=== PATIENT | female | born 1965 | race Caucasian/White ===

== ENCOUNTER 2021-05-06 01:33 | Inpatient (IN) | payer BC, SELFPAY ==
[2021-05-06] VITALS (13 sets, daily range): BP systolic 106–160; BP diastolic 44–77; PULSE 68–86; RESP 16–24; TEMP 36.5–37.4; O2SAT 92–97; BMI 68.1; BMI 60.5
[2021-05-06 02:01] LABS: Basophils # 0.1 K/mm3 (0-0.2); Basophils % 0.6 % (0.1-2.0); Eosinophils # 0.3 K/mm3 (0.0-0.4); Eosinophils % 1.7 % (0.1-12.0); Hematocrit 41.8 % (37.0-47.0); Hemoglobin 13.3 g/dL (12.2-16.2); Lymphocytes % 12.4 % (10-50); Mean Corpuscular HGB Conc 31.7 g/dL (31.8-35.4); Mean Corpuscular Hemoglobin 30.8 pg (27.0-31.2); Monocytes # 0.5 K/mm3 (0.1-1.0); Monocytes % 3.1 % (1.7-9.3); Neutrophils # 12.9 K/mm3 (1.8-7.8); Neutrophils % 82.2 % (37.0-80.0); Platelet Count 431 K/mm3 (142-424); Red Blood Count 4.31 M/mm3 (4.20-5.40); Red Cell Distribution Width 15.7 % (11.5-17.5); White Blood Count 15.7 K/mm3 (4.8-10.8)
[2021-05-06 02:07] LABS: Alanine Aminotransferase 50 U/L (12-78); Albumin Level 4.2 g/dl (3.5-5.0); Alkaline Phosphatase 95 U/L (38-126); Anion Gap 14.9 mEq/L (5-15); Aspartate Amino Transferase 45 U/L (14-36); Bilirubin,Total 0.9 mg/dl (0.2-1.3); Blood Urea Nitrogen 17 mg/dl (7-17); Calcium 9.7 mg/dl (8.4-10.2); Carbon Dioxide 33 mmol/L (22.0-30.0); Chloride 93 mmol/L (98-107); Creatinine Clearance Estimated 60 mL/min (50-200); Estimated Glomerular Filt Rate 65 ml/min (>60); GFR (African American) 78 ML/MIN (>60); Globulin 4.1 g/dL (1.3-3.2); Glucose 149 mg/dl (74-100); Potassium 3.9 mmoL/L (3.5-5.1); Sodium 137 mmol/L (136-145); Total Protein,Serum 8.3 g/dl (6.3-8.2)
[2021-05-06 02:11] LABS: Lactic Acid 2.8 mmol/L (0.7-2.1)
[2021-05-06 02:12] LABS: C-Reactive Protein 61.8 mg/L (0-4)
[2021-05-06 02:13] LABS: MANUAL DIFFERENTIAL MANUAL DIFFERENTIAL (MANUAL DIFF)
[2021-05-06 02:14] LABS: Eosinophils % 3 % (0-3); Lymphocytes % 11 % (10-50); Monocytes % 2 % (2-9); Neutrophils % 80 % (42-76); Platelet Estimate Normal; Total Cells Counted 100
[2021-05-06 02:15] LABS: Hypochromasia 1+; Macrocytosis 1+
[2021-05-06 02:26] LABS: Procalcitonin 0.102 ng/mL (0.0-2.0)
[2021-05-06 02:27] LABS: Erythrocyte Sedimentation Rate 81 mm/hr (0-30)
[2021-05-06 02:59] LABS: Coronavirus 19, PCR Not Detected (NotDetected); Influenza A, PCR Not Detected (NotDetected); Influenza B, PCR Not Detected (NotDetected)
--- NOTE | 2021-05-06 03:30 | HMH.EDSKAF ---
ED Disposition Clinical Impression: IDDM (insulin dependent diabetes mellitus), Hypothyroidism (acquired), Severe sepsis with acute organ dysfunction, Pickwickian syndrome Lower extremity cellulitis Qualifiers: Laterality: left Qualified Code(s): L03.116 - Cellulitis of left lower limb Obesity Qualifiers: Obesity type: due to excess calories Obesity classification: adult class 3 (BMI >= 40) Serious obesity comorbidity presence: with serious comorbidity Body mass index: BMI 60.0-69.9 Qualified Code(s): E66.01 - Morbid (severe) obesity due to excess calories; Z68.44 - Body mass index [BMI] 60.0-69.9, adult Disposition: Admitted as Observation Condition on Discharge: Good Referrals: Davy Forman MD [Primary Care Provider] - - Critical Care Critical Care Time: No Attestation: On 05/06/21, the high probability of a clinically significant, sudden or life threatening deterioration of the following system(s) required my full and direct attention, intervention and personal management. The time I documented below is in addition to time spent performing reported procedures but includes the following listed in this critical care notation. Medical Decision Making - Medical Records Medical records reviewed: Yes: I reviewed the patient's medical records. - Yemi Inquiry Pt receiving controlled substance: No Vital Signs: 05/06/21 01:34 05/06/21 02:30 Temperature 98.0 F Temperature Source Oral Pulse Rate 73 Pulse Rate [Right] 86 Respiratory Rate 22 Blood Pressure 115/57 L Blood Pressure [Right Arm] 160/77 H Blood Pressure Mean 73 Blood Pressure Mean [Right Arm] 104 02 Sat by Pulse Oximetry 97 94 L - Lab Data Lab results reviewed: Yes: I reviewed the patient's lab results. Lab Results 05/06/21 01:40: WBC 15.7 H, RBC 4.31, Hgb 13.3, Hct 41.8, MCV 97.0, MCH 30.8, MCHC 31.7 L, RDW 15.7, Plt Count 431 H, MPV 8.0, Neut % (Auto) 82.2 H, Lymph % (Auto) 12.4, Park % (Auto) 3.1, Eos % (Auto) 1.7, Baso % (Auto) 0.6, Neut # (Auto) 12.9 H, Lymph # (Auto) 2.0, Park # (Auto) 0.5, Eos # (Auto) 0.3, Baso # (Auto) 0.1, Total Counted 100, Neutrophils % (Manual) 80 H, Band Neutrophils % 4.0, Lymphocytes % (Manual) 11, Monocytes % (Manual) 2, Eosinophils % (Manual) 3, Platelet Estimate Normal, Hypochromasia 1+, Macrocytosis 1+, ESR 81 H 05/06/21 01:40: Sodium 137, Potassium 3.9, Chloride 93 L, Carbon Dioxide 33 H, Anion Gap 14.9, BUN 17, Creatinine 0.90, Estimated Creat Clear 60, Estimated GFR 65, Est GFR ( Amer) 78, Glucose 149 H, Calcium 9.7, Total Bilirubin 0.9, AST 45 H, ALT 50, Alkaline Phosphatase 95, C-Reactive Protein 61.8 H, Total Protein 8.3 H, Albumin 4.2, Globulin 4.1 H, Albumin/Globulin Ratio 1.0 L, Procalcitonin 0.102 05/06/21 01:40: Lactate 2.8 H 05/06/21 02:44: SARS-CoV-2 (PCR) Not detected, Influenza A Untype (PCR) Not detected, Influenza Type B (PCR) Not detected Result diagrams: 05/06/21 01:40 05/06/21 01:40 Orders (Tests/Meds): ED MEDICATIONS Generic Name Dose Route Start Last Admin Trade Name Freq PRN Reason Stop Dose Admin Sodium Chloride 1,000 mls @ 999 mls/hr 05/06/21 02:00 05/06/21 02:13 Sod Chlor 0.9% 1000ml Bag IV 05/06/21 03:00 999 mls/hr .Q1H1M CELESTINO Administration Discontinued Medications Generic Name Dose Route Start Last Admin Trade Name Freq PRN Reason Stop Dose Admin Ketorolac Tromethamine 30 mg 05/06/21 01:58 05/06/21 02:13 Ketorolac 30mg/Ml Vial IV 05/06/21 01:59 30 mg ONCE ONE Administration ORDERS Category Date Time Status Blood Culture Stat Micro 05/06/21 01:40 Received - Radiology Data #1 Image(s): Foot/Toes Image Reviewed: Yes I have reviewed radiologist's interpretation Preliminary Findings: Abnormal (sts) - Physician Consults Physician Consulted: shaista Reason -: Admission Medical Decision Narrative: has prob infection lt lower leg/foot in diabetic with sepsis criteria Skin/Abscess/FB HPI - Genera
--- NOTE | 2021-05-06 03:54 | XR_ITS ---
PROCEDURE INFORMATION: Exam: XR Left Foot Exam date and time: 05/06/2021 3:54 AM Age: 55 years old Clinical indication: Pain; Foot; Left; Additional info: Pain lt foot, redness and swelling TECHNIQUE: Imaging protocol: XR Left foot. Views: 3 or more views. COMPARISON: No relevant prior studies available. FINDINGS: Bones/joints: No acute fracture, dislocation or osseous destructive process. Mild intertarsal and tarsometatarsal degenerative changes. Soft tissues: Small enthesophyte at the attachment of the plantar fascia on the calcaneus. Soft tissue swelling without radiopaque foreign body. Vasculature: Atherosclerotic calcifications. IMPRESSION: 1. No acute osseous findings or radiopaque foreign body. 2. Soft tissue swelling. 3. Mild degenerative changes in the foot.
--- NOTE | 2021-05-06 04:52 | PC.NURSE ---
Dr Mcintyre speaking with Dr Joseph for admission
--- NOTE | 2021-05-06 05:02 | PC.NURSE ---
Vancomycin dose per Night watch
[2021-05-06 05:05] LABS: Reflex Lactic Add Lactic Reflex
[2021-05-06 05:25] LABS: Lactic Acid Follow Up (RFLX 1) 1.1 mmol/L (0.7-2.1)
--- NOTE | 2021-05-06 05:35 | PC.NURSE ---
pt arrived to floor via stretcher
--- NOTE | 2021-05-06 06:51 | PC.WOUNDNOTE ---
Open areas to Bilateral posterior thighs and buttocks
[2021-05-06 07:50] LABS: POC Glucose,Bedside 116 (70-110)
--- NOTE | 2021-05-06 08:09 | P.CONPHA_ITS ---
[facility] VTE Monitoring - Patient Demographics Admission date: 05/06/21 Report Date: 05/06/21 Time: 08:09 Allergies/Adverse Reactions: Patient Allergies amoxicillin [From Augmentin] Allergy (Verified 05/06/21 01:55) clavulanic acid [From Augmentin] Allergy (Verified 05/06/21 01:55) amlodipine [From Norvasc] Adverse Reaction (Verified 05/06/21 01:55) Height: 1.63 m Weight: 160.685 kg Patient Problems: Current Active Problems Lower extremity cellulitis (Acute) Obesity (Acute) IDDM (insulin dependent diabetes mellitus) (Acute) Hypothyroidism (acquired) (Acute) Severe sepsis with acute organ dysfunction (Acute) Pickwickian syndrome (Acute) - VTE Risk Labs: VTE Related Lab Results Hgb 13.3 g/dL (12.2-16.2) 05/06/21 01:40 Hct 41.8 % (37.0-47.0) 05/06/21 01:40 Plt Count 431 K/mm3 (142-424) H 05/06/21 01:40 BUN 17 mg/dl (7-17) 05/06/21 01:40 Creatinine 0.90 mg/dl (0.52-1.04) 05/06/21 01:40 Estimated Creat Clear 60 mL/min (50-200) 05/06/21 01:40 Was VTE Risk Assessment Performed: Yes VTE Risk Level: Moderate Risk Clinical Trial Participant: No - Prophylaxis VTE Prophylaxis Ordered?: Yes Types of VTE Prophylaxis: TEDS Knee High
--- NOTE | 2021-05-06 08:11 | HMH.PHACONS ---
- Pharmacy Consult Date: 05/06/21 Time: 08:11 Referring provider: DR. MISHRA Reason for Consult:: VANCOMYCIN DOSING Allergies and ADEs:: Allergies Allergy/AdvReac Type Severity Reaction Status Date / Time amoxicillin [From Augmentin] Allergy Verified 05/06/21 01:55 clavulanic acid Allergy Verified 05/06/21 01:55 [From Augmentin] amlodipine [From Norvasc] AdvReac Verified 05/06/21 01:55 Home Medications:: Home Medications Medication Instructions Recorded Confirmed Type Aspirin [Aspirin 81mg EC Tab] 81 mg PO DAILY 05/06/21 05/06/21 History Folic Acid [Folic Acid 1mg tablet] 1 mg PO DAILY 05/06/21 05/06/21 History Gabapentin [Gabapentin 300mg/6ml 300 mg PO DIRECTED 05/06/21 05/06/21 History Oral Soln] Hydrocod/Acet 5/325 mg [[place] 1 tab PO Q4-6H 05/06/21 05/06/21 History 5/325mg tablet] Insulin Aspart [Novolog Flexpen] 15 unit SQ TID 05/06/21 05/06/21 History Insulin Glargine,Hum.rec.anlog 50 units SQ BID 05/06/21 05/06/21 History [Lantus Solostar 100 Units/mL 3mL flexpen] Levothyroxine Sodium [Synthroid 300 mcg PO DAILY 05/06/21 05/06/21 History 100mcg (0.1mg) tablet] Metformin HCl [Metformin 1000mg 100 mg PO BID 05/06/21 05/06/21 History Tablets] Omeprazole [Omeprazole 40mg 40 mg PO DAILY 05/06/21 05/06/21 History Capsule] Oxybutynin Chloride [Oxybutynin 5 mg PO DAILY 05/06/21 05/06/21 History Chloride ER] Rosuvastatin Calcium 5 mg PO DAILY 05/06/21 05/06/21 History metHOTREXate sodium [metHOTREXate 8 tab PO WEEKLY 05/06/21 05/06/21 History 2.5mg Tablet] predniSONE [Prednisone 5mg 10 mg PO DAILY 05/06/21 05/06/21 History Tab] Height: 1.63 m Weight: 160.685 kg Laboratory Results:: Laboratory Results - last 24 hr 05/06/21 01:40: WBC 15.7 H, RBC 4.31, Hgb 13.3, Hct 41.8, MCV 97.0, MCH 30.8, MCHC 31.7 L, RDW 15.7, Plt Count 431 H, MPV 8.0, Neut % (Auto) 82.2 H, Lymph % (Auto) 12.4, Harding % (Auto) 3.1, Eos % (Auto) 1.7, Baso % (Auto) 0.6, Neut # (Auto) 12.9 H, Lymph # (Auto) 2.0, Harding # (Auto) 0.5, Eos # (Auto) 0.3, Baso # (Auto) 0.1, Total Counted 100, Neutrophils % (Manual) 80 H, Band Neutrophils % 4.0, Lymphocytes % (Manual) 11, Monocytes % (Manual) 2, Eosinophils % (Manual) 3, Platelet Estimate Normal, Hypochromasia 1+, Macrocytosis 1+, ESR 81 H 05/06/21 01:40: Sodium 137, Potassium 3.9, Chloride 93 L, Carbon Dioxide 33 H, Anion Gap 14.9, BUN 17, Creatinine 0.90, Estimated Creat Clear 60, Estimated GFR 65, Est GFR ( Amer) 78, Glucose 149 H, Calcium 9.7, Total Bilirubin 0.9, AST 45 H, ALT 50, Alkaline Phosphatase 95, C-Reactive Protein 61.8 H, Total Protein 8.3 H, Albumin 4.2, Globulin 4.1 H, Albumin/Globulin Ratio 1.0 L, Procalcitonin 0.102 05/06/21 01:40: Lactate 2.8 H 05/06/21 02:44: SARS-CoV-2 (PCR) Not detected, Influenza A Untype (PCR) Not detected, Influenza Type B (PCR) Not detected 05/06/21 05:10: Lactate 1.1 05/06/21 06:06: POC Glucose 116 H Medical History: Reports:: Diabetes Mellitus Type 2, MRSA Denies:: Cancer Assessment and Plan - Assessment and plan all Dx Assessment and Plan for all problems:: Age: 55 yo Serum creatinine: 0.9 mg/dL Height: 64.2 Inches Weight (kg): 160 Assessment: IBW (kg): 55.16 Dosing wt(kg): 160 Estimated Creatinine clearance (ml/min): 60.8 CRCL method: Cockcroft and Gault using ibw(default). Drug selected: Vancomycin Loading dose (mg): 0 Vd (liters): 128.0 (factor used: 0.8 L/kg) Nolan (hr-1): 0.055 Half life (hrs): 12.60 Recommended dose: 2000 mg Interval: 12 hrs Infusion time (hrs): 2.0 Predicted peak (mcg/mL): 30.6 Predicted trough (mcg/mL): 17.65 Total body weight is being used for vancomycin dosing. Recommendations: Give Vancomycin 2000 mg q 12 hrs with an expected Cpeak of 30.6 mcg/ml and an expected Ctrough of 17.65 mcg/ml ----Vanco only - cheryl
--- NOTE | 2021-05-06 09:38 | HMH.HP ---
*Admission Date: 05/06/21 *Chief complaint: cellulitis of leg *History of present illness: Mini is a 55-year-old white female with a history of insulin-dependent type 2 diabetes mellitus, hypothyroidism, dyslipidemia, morbid obesity, obstructive sleep apnea, temporal arteritis, polymyalgia rheumatica, and SHANKS. She has had multiple previous hospitalization for cellulitis and diabetic wounds of both lower extremities. Most of these admissions have been at [facility] in [facility]. Most recently she was hospitalized at [facility] for 5 days last week and was discharged home on 05/03/2021 with a prescription for clindamycin. She became concerned on 05/05/2021 when the redness in her left foot and leg seem to be getting worse and she had more pain in the wound on her left foot. She went back to the emergency room at [facility] and states she was briefly admitted to the floor but when the hospitalist made rounds, he immediately discharged her home with a diagnosis of dermatitis of her leg. 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 She was evaluated in the ER and has now been admitted with a diagnosis of cellulitis and started back on vancomycin which she states she was given last week during her [place] admission. She has been following as an outpatient with [place] wound care for chronic wounds on both posterior thighs. Treatment has been complicated by her diabetes, body habitus, noncompliance due to the fact she is unable to change her own dressings at home and does not qualify for home health because she works every day. [facility] History Medical History: Reports:: Diabetes Mellitus Type 2, MRSA Denies:: Cancer, Deep Vein Thrombosis *Have you ever received a pneumonia vaccine?: Yes *Have you received a flu vaccine this season?: No Other Medical History: Reports: Arthritis, Thyroid Disease, Other (Chronic venous insufficiency, PMR, SHANKS, chronic steroid use) Other Surgeries: Yes: Other (Left salpingo-oophorectomy, temporal artery biopsy, pilomatrixoma (R arm)) Amputation: No - *Social History Last grade of school completed: High school graduate Smoking Status: Never smoker Alcohol Intake: never Substance Use Type: denies use *Occupational Status:: employed, disabled *Travel in the last 8 weeks: None Family Hx:: Asthma, Cancer, Diabetes, Hypertension, Stroke, Thyroid Disorder Review of Systems - Constitutional Reports fatigue, Reports lack of energy - Eyes Denies change in vision, Denies itchy eyes - ENT Reports dizziness, Denies hearing loss, Denies nasal congestion, Denies sinus pressure - *Cardiovascular Reports leg pain with activity, Reports shortness of breath with activity, Denies chest pain, Denies irregular heart rhythm, Denies rapid, pounding, or irregular heartbeat - *Respiratory Reports snoring, Denies chest congestion, Denies cough - *Gastrointestinal Denies abdominal pain, Denies change in bowel habits, Denies nausea - *Genitourinary Denies abnormal vaginal bleeding, Denies difficulty urinating, Denies painful urination - *Musculoskeletal Reports joint pain, Reports muscle weakness - Integumentary/Breasts Reports lesions, Denies hair loss, Denies change in skin color, Denies unusual bruising - *Neurologic Denies localized weakness, Denies headache(s), Denies seizure-like activity - Psychiatric Denies abnormal sleep pattern, Denies memory loss - Endocrine Reports heat intolerance, Denies excessive sweating - Hematologic/Lymphatic Denies easy bleeding, Denies easy bruising - Allergic/Immunologic Denies itchy eyes Meds Home Medications Medication Instructions Recorded Confirmed Type Aspirin [Aspirin 81mg EC Tab] 81 mg PO DAILY 05/06/21 05/06/21 History Folic Acid [Folic Acid 1mg tablet] 1 mg PO DAILY 05/06/21 05/06/21 History Gabap
[2021-05-06 12:04] LABS: POC Glucose,Bedside 101 (70-110)
--- NOTE | 2021-05-06 14:47 | PC.NURSE ---
SHE IS AOX4, ABLE TO MAKE NEEDS KNOWN TO STAFF, SHE HAS RESTED IN BED FOR MOST OF SHIFT, SHE STATED THAT SHE DID NOT SLEEP WELL LAST NIGHT, SHE HAS NOT C/O PAIN THIS SHIFT, DENIES N/V/D, ABD IS SOFT ROUND AND NON-TENDER WITH BOWEL SOUNDS ACTIVE X4, PT HAS TOLERATED DIET WELL. SHE HAS NOT REQUIRED O2 SUPPORT THIS SHIFT. LUNGS ARE DIMINISHED TO AUSCULTATION, RESPIRATIONS ARE NORMAL AND NON-LABORED. HER FSBS HAVE BEEN WNL THIS SHIFT AND SHE HAS NOT REQUIRED SSI. HER 15 UNITS OF NOVOLOG WAS ALSO HELD R/T HER BS LEVEL OF 101 AT 1100 THIS AM. VSS T/O SHIFT, NO NEEDS VOICED.
[2021-05-06 19:13] LABS: POC Glucose,Bedside 116 (70-110)
[2021-05-06 21:27] LABS: POC Glucose,Bedside 124 (70-110)
[2021-05-07] VITALS (16 sets, daily range): BP systolic 101–139; BP diastolic 50–69; PULSE 57–83; RESP 16–24; TEMP 36.4–37.2; O2SAT 93–98; BMI 60.5
--- NOTE | 2021-05-07 02:42 | PC.NURSE ---
Patient is alert and oriented x4. She is a standby assist when ambulating; she ambulates well with the walker. At the beginning of the shift patient had complaints of diarrhea. She has had 3 this shift and a stool sample was collected and sent to the lab. Patient has had complaints of pain and was treated per OCT. VSS, call light within reach, will continue to monitor.
[2021-05-07 05:55] LABS: Adenovirus F 40/41, stool Not Detected (NotDetected); Astrovirus Not Detected (NotDetected); Campylobacter Not Detected (NotDetected); Cryptosporidium Not Detected (NotDetected); Cyclospora Cayetanesis Not Detected (NotDetected); Entamoeba histolytica Not Detected (NotDetected); Enteroaggregative E coli Not Detected (NotDetected); Enteropathogenic E coli Not Detected (NotDetected); Enterotoxigenic E coli Not Detected (NotDetected); Giardia lamblia Not Detected (NotDetected); Norovirus Not Detected (NotDetected); Plesimonas Shigalloides, PCR Not Detected (NotDetected); Rotavirus A Not Detected (NotDetected); Salmonella, PCR Not Detected (NotDetected); Sapovirus Not Detected (NotDetected); Shiga-like toxin E coli Not Detected (NotDetected); Shigella Enterovasive E coli Not Detected (NotDetected); Vibrio Cholerae Not Detected (NotDetected); Vibrio, PCR Not Detected (NotDetected); Yersinia Entercolitica, PCR Not Detected (NotDetected)
[2021-05-07 06:00] LABS: Basophils # 0.1 K/mm3 (0-0.2); Basophils % 1.4 % (0.1-2.0); Eosinophils # 0.9 K/mm3 (0.0-0.4); Hematocrit 37.9 % (37.0-47.0); Hemoglobin 11.8 g/dL (12.2-16.2); Lymphocytes % 9.5 % (10-50); Mean Corpuscular HGB Conc 31.2 g/dL (31.8-35.4); Mean Corpuscular Hemoglobin 30.9 pg (27.0-31.2); Mean Corpuscular Volume 99.2 fl (81-99); Mean Platelet Volume 7.9 fl (7.4-10.4); Monocytes # 0.7 K/mm3 (0.1-1.0); Monocytes % 7.2 % (1.7-9.3); Neutrophils # 7.3 K/mm3 (1.8-7.8); Neutrophils % 72.9 % (37.0-80.0); Platelet Count 310 K/mm3 (142-424); Red Blood Count 3.82 M/mm3 (4.20-5.40); Red Cell Distribution Width 15.8 % (11.5-17.5)
[2021-05-07 06:02] LABS: POC Glucose,Bedside 102 (70-110)
[2021-05-07 06:10] LABS: Anion Gap 8.9 mEq/L (5-15); Blood Urea Nitrogen 14 mg/dl (7-17); Calcium 8.3 mg/dl (8.4-10.2); Carbon Dioxide 32 mmol/L (22.0-30.0); Chloride 99 mmol/L (98-107); Creatinine Clearance Estimated 60 mL/min (50-200); Estimated Glomerular Filt Rate 65 ml/min (>60); GFR (African American) 78 ML/MIN (>60); Glucose 112 mg/dl (74-100); Potassium 3.9 mmoL/L (3.5-5.1); Sodium 136 mmol/L (136-145)
[2021-05-07 06:16] LABS: C-Reactive Protein 66.5 mg/L (0-4)
[2021-05-07 06:25] LABS: Erythrocyte Sedimentation Rate 87 mm/hr (0-30)
--- NOTE | 2021-05-07 08:00 | US_ITS ---
APPROVED REPORT Exam Type: Ankle to Brachial Index Dance Historian: Rachele Gary RCS, RVS Indications Edema Extreme morbid obesity, DM, Dermatitis, Cellulitis Risk Factors Obesity Diabetes Pressures/Indices Right Indices Left Indices Brachial 113.00 mmHg Brachial 105.00 mmHg Calf 220.00 mmHg 1.95 Calf 178.00 mmHg 1.58 Ankle(PT) 149.00 mmHg 1.32 Ankle(PT) 173.00 mmHg 1.53 Ankle(DP) 140.00 mmHg 1.24 Ankle(DP) 109.00 mmHg 0.96 Digit 121.00 mmHg 1.07 Digit 95.00 mmHg 0.84 Findings No thigh pressures available bilaterally due to leg circumference exceeds cuffs ability. Waveforms within normal limits. RT BRANDEE=1.32 LT BRANDEE=1.53 RT TBI=1.24 LT TBI=0.84 Conclusion No thigh pressures available bilaterally due to leg circumference exceeds cuffs ability. Waveforms within normal limits. RT BRANDEE=1.32 LT BRANDEE=1.53 RT TBI=1.24 LT TBI=0.84 Elevated ABIs on both sides suggesting hardening of the vessels Electronically signed by : Pravin Perry MD 05/07/2021 16:30:38
--- NOTE | 2021-05-07 08:00 | MR_ITS ---
PROCEDURE INFORMATION: Exam: MR Left Lower Extremity Other Than Joint Without and With Contrast; Foot Exam date and time: 05/07/2021 8:00 AM Age: 55 years old Clinical indication: Pain; Foot; Left; Additional info: Evaluate diabetic ulcer TECHNIQUE: Imaging protocol: MR of the Left lower extremity without and with intravenous contrast. Exam focused on the foot. Contrast material: PROHANCE; Contrast volume: 30 ml; Contrast route: IV; COMPARISON: CR XR FOOT LT MIN 3V 05/06/2021 4:01 AM FINDINGS: Limitations: The large efowq-un-nuik needed to image the entire foot and ankle results in proportionally lower anatomic detail. Motion artifact is also present. Bones and cartilage: There is no evidence of osteomyelitis. No fracture or dislocation is present. Severe osteoarthritis involves the second tarsometatarsal joint and navicular-medial cuneiform joint. There is a healed fracture of the proximal fifth metatarsal. A small plantar calcaneal enthesophyte is present. Joint spaces: Mild effusions involve the navicular-medial cuneiform joint and decompress posteriorly from the posterior facet of the subtalar joint. LIGAMENTS: Lisfranc ligament: Unremarkable. No evidence of tear. TENDONS: Flexor tendons of foot: Unremarkable. No evidence of tear. Tibialis posterior tendon: Unremarkable as visualized. Peroneal tendons: Mild tenosynovitis involves the peroneal tendon sheath. Extensor tendons of foot: Unremarkable. No evidence of tear. Tibialis anterior tendon: Unremarkable as visualized. Achilles tendon: Mild thickening involves the distal Achilles tendon, consistent with mild tendinopathy. Tarsal canal (Sinus tarsi): Unremarkable. Tarsal tunnel: Unremarkable. Soft tissues: There is a moderate amount of edema in the subcutaneous fat suggesting cellulitis. There is a presumed soft tissue ulcer along the plantar aspect of the fifth metatarsophalangeal joint although assessment is somewhat limited by artifactually decreased MR signal in this region. There is no focal fluid collection or soft tissue gas to suggest an abscess. Plantar fascia: The proximal plantar fascia is mildly thickened and has mildly increased T2 signal consistent with mild plantar fasciitis (fasciopathy). IMPRESSION: 1. No abscess or osteomyelitis. 2. Moderate subcutaneous edema consistent with cellulitis. 3. Mild Achilles tendinopathy. 4. Mild plantar fasciitis (fasciopathy). 5. Mild tenosynovitis of the peroneal tendons.
--- NOTE | 2021-05-07 08:11 | HMH.ORTHOCON ---
*Admission Date: 05/06/21 <Loan Briones - 05/07/21 08:22> *Reason for consult:: cellultis of L lower leg, L sub 5th DM ulcer <Loan Briones - 05/07/21 08:22> *History of present illness: Mini is a 55-year-old white female with a history of insulin-dependent type 2 diabetes mellitus, hypothyroidism, dyslipidemia, morbid obesity, obstructive sleep apnea, temporal arteritis, polymyalgia rheumatica, and SHNAKS. She has had multiple previous hospitalization for cellulitis and diabetic wounds of both lower extremities. Most of these admissions have been at [facility] in [facility]. Most recently she was hospitalized at [facility] for 5 days last week and was discharged home on 05/03/2021 with a prescription for clindamycin. She became concerned on 05/05/2021 when the redness in her left foot and leg seem to be getting worse and she had more pain in the wound on her left foot. She went back to the emergency room at [facility] and states she was briefly admitted to the floor but when the hospitalist made rounds, he immediately discharged her home with a diagnosis of dermatitis of her leg. 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 She was evaluated in the ER and has now been admitted with a diagnosis of cellulitis and started back on vancomycin which she states she was given last week during her [place] admission. She has been following as an outpatient with [place] wound care for chronic wounds on both posterior thighs. Treatment has been complicated by her diabetes, body habitus, noncompliance due to the fact she is unable to change her own dressings at home and does not qualify for home health because she works every day. Podiatry consult -patient resting in bed this morning she was getting her ABIs obtained while entering the room this morning. Patient admitted with cellulitis to the left lower extremity but also looks like she has some chronic cellulitis on her bilateral upper thighs. Patient also presents with a left subfifth diabetic ulcer that she said started out as a blood blister and then popped. The site appears to be very superficial but very painful to touch. There was no drainage when compressed but upon compression all the way around the ulcer was excruciating pain for her. The area was lightly cleaned and debrided and dressed with Betadine dressing. The plan is to take the patient later after her MRI has been obtained to surgery for I&D and flush the area out with antibiotics later today. Patient is to remain n.p.o. until after surgery. <AnaliLoan L 05/07/21 10:11> [facility] History I have reviewed the patient's past medical history: Yes <Loan Briones 05/07/21 12:03> Medical History: Reports:: Diabetes Mellitus Type 2, MRSA Denies:: Cancer, Deep Vein Thrombosis <Loan Briones 05/07/21 08:22> *Have you ever received a pneumonia vaccine?: Yes <Loan Briones 05/07/21 08:22> *Have you received a flu vaccine this season?: No <Loan Briones 05/07/21 08:22> Other Medical History: Reports: Arthritis, Thyroid Disease, Other (Chronic venous insufficiency, PMR, SHANKS, chronic steroid use) <Loan Briones 05/07/21 08:22> Other Surgeries: Yes: Other (Left salpingo-oophorectomy, temporal artery biopsy, pilomatrixoma (R arm)) <Loan Briones 05/07/21 08:22> Amputation: No <Loan Briones 05/07/21 08:22> - *Social History Last grade of school completed: High school graduate <Loan Briones 05/07/21 08:22> Smoking Status: Never smoker <Loan Briones 05/07/21 08:22> Alcohol Intake: never <Loan Briones 05/07/21 08:22> Substance Use Type: denies use <Loan Briones 05/07/21 08:22> *Occupational Status:: employed, disabled <Loan Briones 05/07/21 08:22> *Travel in the last 8 weeks: None <Loan Briones - 05/07/21 0
[2021-05-07 08:16] LABS: Clostridium Difficile A/B, PCR Detected (NotDetected)
--- NOTE | 2021-05-07 08:22 | HMH.ACPN2 ---
<Jillian Killian - Last Filed: 05/07/21 08:32> Internal Medicine - PN: Subj *Date: 05/07/21 *Time: 08:33 Interval history: Patient feels that her left leg is better. She did sleep some during the night. She is currently having her left foot wound being debrided and cleansed at bedside. Wound site is very tender. She had several diarrhea stools during the night with her last being around 12 midnight. Stool panel came back positive for C. difficile. White blood cell count has decreased to 10,000. ESR is elevated at 87. Exam Vital signs and Labs for Last 24 Hours: Temp Pulse Resp BP Pulse Ox 98.3 F 70 24 139/69 94 L 05/07/21 07:51 05/07/21 07:51 05/07/21 07:51 05/07/21 07:51 05/07/21 07:51 Laboratory Results - last 24 hr 05/06/21 11:35: POC Glucose 101 05/06/21 16:35: POC Glucose 116 H 05/06/21 20:54: POC Glucose 124 H 05/07/21 00:00: Stl Aeromonas (PCR) Not detected, Stl C. cayetanensis PCR Not detected, Stool Rotavirus (PCR) Not detected, Stl Adenov F 40/41 PCR Not detected, Stool Astrovirus (PCR) Not detected, Stool Campylobacter PCR Not detected, Stl C.difficile Tox PCR Detected A, Stool Cryptosporidium PCR Not detected, Stl E.coli Shiga Tox PCR Not detected, Stool E coli O157 PCR Not detected, Stl Enterotoxigenic E PCR Not detected, Stool EPEC (PCR) Not detected, Stool EAEC (PCR) Not detected, Stl E. histolytica PCR Not detected, Stool Giardia Lamblia PCR Not detected, Stool Salmonella PCR Not detected, Stool Sapovirus (PCR) Not detected, Stl P. shigelloides PCR Not detected, Stl Shigella/EIEC PCR Not detected, St Y.enterocolitica PCR Not detected, Stool Vibrio (PCR) Not detected, Stl Vibrio cholerae PCR Not detected, Stl Norovirus GI/GII PCR Not detected 05/07/21 05:21: POC Glucose 102 05/07/21 05:35: WBC 10.0 D, RBC 3.82 L, Hgb 11.8 L, Hct 37.9, MCV 99.2 H, MCH 30.9, MCHC 31.2 L, RDW 15.8, Plt Count 310 D, MPV 7.9, Neut % (Auto) 72.9, Lymph % (Auto) 9.5 L, [place] % (Auto) 7.2, Eos % (Auto) 9.0, Baso % (Auto) 1.4, Neut # (Auto) 7.3, Lymph # (Auto) 1.0, [place] # (Auto) 0.7, Eos # (Auto) 0.9 H, Baso # (Auto) 0.1, ESR 87 H 05/07/21 05:35: C-Reactive Protein 66.5 H 05/07/21 05:35: Sodium 136, Potassium 3.9, Chloride 99, Carbon Dioxide 32 H, Anion Gap 8.9, BUN 14, Creatinine 0.90, Estimated Creat Clear 60, Estimated GFR 65, Est GFR ( Amer) 78, Glucose 112 H, Calcium 8.3 L I & O for Last 24 hours: Intake & Output 05/04/21 05/05/21 05/06/21 05/07/21 11:59 11:59 11:59 11:59 Intake Total 1500 / 1500 2672 / 2672 Output Total 0 / 0 Balance 1500 / 1500 2672 / 2672 Weight 354 lb 4 oz 354 lb 4 oz - Constitutional no acute distress, morbidly obese Comments: Uncomfortable with wound debridement - *Routine Respiratory Exam Present: CTA bilaterally - *Routine Cardiovascular Exam Present: RRR - *Routine Abdominal Exam Present: soft, normoactive bowel sounds, obese. Absent: tenderness - *Routine Extremities Exam Present: edema (Bilateral lower leg.), tenderness (Left outer foot wound) Comments: Bilateral lower leg erythema greater on the left. - *Routine Neurological Exam Present: alert, oriented X3 Assessment and Plan (1) Lower extremity cellulitis Status: Acute Qualifiers: Laterality: left Qualified Code(s): L03.116 - Cellulitis of left lower limb Category: Medical Code(s): L03.119 - Cellulitis of unspecified part of limb (2) Chronic venous insufficiency Status: Acute Category: Medical Code(s): I87.2 - Venous insufficiency (chronic) (peripheral) (3) Diabetic foot ulcer Status: Acute Category: Medical Code(s): E11.621 - Type 2 diabetes mellitus with foot ulcer; L97.509 - Non-pressure chronic ulcer of other part of unspecified foot with unspecified severity (4) Morbid obesity Status: Acute Category: Medical Code(s): E66.01 - Morbid (severe) obesity due to excess calories (5) Type 2 diabetes mellitus Status: Acute Category: Medical Code(
[2021-05-07 08:26] LABS: POC Glucose,Bedside 98 (70-110)
[2021-05-07 11:42] LABS: POC Glucose,Bedside 111 (70-110)
--- NOTE | 2021-05-07 13:12 | P.PN_ITS ---
[facility] Anesthesia Checklist - Structural Data Admitted From: Inpatient Planned Operative Procedure/s: i/d l foot Consent for Planned Operative Procedure(s) Verified: Yes - Airway Assessment C-Spine Mobility Assessed: Yes TMJ Mobility Assessed: Yes Dentition: Poor Dentition - Neurological Assessment Level of Consciousness: Awake, Alert, Appropriate - Anesthesia Plan Anesthesia Risk discussed: Yes Anesthesia Plan: Verified ASA Class: III Anesthesia Type: Local & MAC [facility] History I have reviewed the patient's past medical history: Yes Medical History: Reports:: Diabetes Mellitus Type 2, MRSA Denies:: Cancer, Deep Vein Thrombosis *Have you ever received a pneumonia vaccine?: Yes *Have you received a flu vaccine this season?: No Other Medical History: Reports: Arthritis, Thyroid Disease, Other (Chronic venous insufficiency, PMR, SHANKS, chronic steroid use) Comment:: morbid obesity Anesthesia experience/problems:: hard to awaken Other Surgeries: Yes: Other (Left salpingo-oophorectomy, temporal artery biopsy, pilomatrixoma (R arm)) Amputation: No - *Social History Last grade of school completed: High school graduate Smoking Status: Never smoker Alcohol Intake: never Substance Use Type: denies use *Occupational Status:: employed, disabled *Travel in the last 8 weeks: None Family Hx:: Asthma, Cancer, Diabetes, Hypertension, Stroke, Thyroid Disorder
[2021-05-07 14:24] LABS: POC Glucose,Bedside 125 (70-110)
--- NOTE | 2021-05-07 14:27 | HMH.OPNOTE ---
Date of procedure: 05/07/21 Pre-op Diagnosis:: 1. Left foot cellulitis 2. Left DM foot ulcer 3. Left foot abscess 4. (+) C diff stool infection Post-op Diagnosis:: Same Procedure performed:: 1. Left foot 5th metatarsal percutaneous bone biospy 2. Left foot incision and drainage 3. Left foot wound debridement, ulcer excision with delayed primary closure Surgeon:: Suzie Prather DPM CHEESE COOKER:: Barrett Zavala Anesthesia: MAC, local (20cc 0.5% marcaine plain) Estimated blood loss (mL): 15 Clinical Note:: Discussed xray and labs with patient. We discussed conservative versus surgical treatment options. We discussed conservative care including continued oral vs IV antibiotics and local wound care versus surgical incision and drainage. Patient understands that they could have wound healing complications including delayed healing and infection. We discussed that if the wound does not heal, it is possible that they may need further debridement. I explained untreated infection can spread up the tendon and could lead to sepsis or loss of part of the tendon. Patient understands if infection spreads into the bone, it may warrant proximal amputation and could result in further loss of digits, loss of partial foot or loss of leg. We discussed the risks and benefits in great detail. Other surgical risks include: prolonged pain and swelling, further infection requiring oral or IV antibiotics, delay in healing of soft tissue or bone, nerve or blood vessel damage, CRPS/RSD, DVT, anesthesia complications, and even . All questions answered. Patient verbalized understanding. Consent obtained. Operative findings:: Separate incision over dorsal lateral left foot. 5th metatarsal evaluated, bone biospy performed. Bone hard with no purulence, malodor or obvious signs of infection. Left plantar ulcer post debridement sharply excisionally with 15' blade and forceps thru skin, subq into/involving deep fascia. No exposed bone. Some serous drainage, wound culture taken. Ulcer excised in total full thickness. Post debridement, ulcer opening measures: 2.5x1.5x0.4cm. The wound was reapproximated with 0 prolene. Operative note:: On this date and time patient was deemed an appropriate surgical candidate. With informed consent signed, the patient was taken to the operating theater room. The patient was positioned supine. MAC anesthesia was induced. No tourniquet used. Pre-op left foot block given with 20 cc 0.5% marcaine plain. The left extremity was prepped and draped in normal sterile fashion. Left foot 5th metatarsal percutaneous bone biospy: A separate incision was made on the dorsal lateral aspect of the left foot over the fifth metatarsal head with a 15 blade. Dissection carried down bluntly with a hemostat. Percutaneous bone biopsy was then performed. A piece of the fifth metatarsal head was removed and sent to bone pathology and another for bone culture. Bone was hard, intact and white in color. Percutaneous incision was flushed with saline. 0 Prolene was then used to reapproximate the skin in an interrupted simple suture fashion. Left foot incision and drainage: Attention was directed to the plantar aspect of the left foot where an ulceration was noted over the subfifth metatarsal. An incision was made on either side of the ulceration full-thickness through skin, subcutaneous tissue into the deep fascia about 0.4 cm deep. There was some serous drainage noted. Wound culture taken. Left wound debridement, foot ulcer excision with delayed primary closure: The left plantar ulcer was debrided sharply excisionally with 15' blade and forceps thru skin, subq into/involving deep fascia. No exposed bone. Ulcer then excised in total full thickness. 100% granular wound edges noted. No purulence or signs of infection noted. Next 500mL of Xperience irrigation was used to flush the wound in a pulse lavage. The wound was reexplored and no further signs of infection noted. Post debridement, u
[2021-05-07 17:05] LABS: POC Glucose,Bedside 144 (70-110)
[2021-05-07 18:07] LABS: Vancomycin,Trough 25.8 ug/mL (5.0-10.0)
[2021-05-07 21:58] LABS: Vancomycin,Peak 23.5 ug/ml (11-39)
[2021-05-07 22:03] LABS: POC Glucose,Bedside 95 (70-110)
[2021-05-08] VITALS: BP 120/71; PULSE 58; RESP 17; TEMP 36.6; O2SAT 93
[2021-05-08 04:00] VITALS: BP 124/70; PULSE 68; RESP 18; TEMP 36.6; O2SAT 94
[2021-05-08 04:22] LABS: Hemoglobin A1C 6.8 % (4.0-6.0)
[2021-05-08 05:00] VITALS: BMI 60.4
[2021-05-08 05:25] LABS: POC Glucose,Bedside 105 (70-110)
--- NOTE | 2021-05-08 05:43 | PC.NURSE ---
Pt currently resting in bed. Has c/o more discomfort tonight. Pt states her neuropathy is bothering her. Pt medicated x2 this shift. DSG in place to (l) foot. BLE edema noted. Pt has multiple ulcers to back of buttocks and thighs. Pt has been up to BR. Has had one loose stool. No other concerns. WIll continue to monitor.
[2021-05-08 06:00] LABS: Basophils # 0.1 K/mm3 (0-0.2); Eosinophils # 0.8 K/mm3 (0.0-0.4); Eosinophils % 5.9 % (0.1-12.0); Lymphocytes # 1.9 K/mm3 (0.7-4.5); Lymphocytes % 14.6 % (10-50); Mean Corpuscular HGB Conc 31.5 g/dL (31.8-35.4); Mean Corpuscular Hemoglobin 30.9 pg (27.0-31.2); Mean Corpuscular Volume 97.9 fl (81-99); Monocytes # 0.8 K/mm3 (0.1-1.0); Monocytes % 5.9 % (1.7-9.3); Neutrophils # 9.2 K/mm3 (1.8-7.8); Neutrophils % 72.6 % (37.0-80.0); Platelet Count 337 K/mm3 (142-424); Red Blood Count 3.57 M/mm3 (4.20-5.40); Red Cell Distribution Width 15.8 % (11.5-17.5); White Blood Count 12.7 K/mm3 (4.8-10.8)
[2021-05-08 06:10] LABS: Alanine Aminotransferase 23 U/L (12-78); Albumin Level 3.1 g/dl (3.5-5.0); Albumin/Globulin Ratio 0.9 (1.1-1.8); Alkaline Phosphatase 72 U/L (38-126); Anion Gap 11.9 mEq/L (5-15); Aspartate Amino Transferase 28 U/L (14-36); Bilirubin,Total 0.2 mg/dl (0.2-1.3); Blood Urea Nitrogen 14 mg/dl (7-17); Calcium 8.3 mg/dl (8.4-10.2); Carbon Dioxide 28 mmol/L (22.0-30.0); Chloride 101 mmol/L (98-107); Creatinine Clearance Estimated 68 mL/min (50-200); Estimated Glomerular Filt Rate 74 ml/min (>60); GFR (African American) 90 ML/MIN (>60); Globulin 3.3 g/dL (1.3-3.2); Glucose 116 mg/dl (74-100); Potassium 3.9 mmoL/L (3.5-5.1); Sodium 137 mmol/L (136-145); Total Protein,Serum 6.4 g/dl (6.3-8.2)
[2021-05-08 06:16] LABS: C-Reactive Protein 46.6 mg/L (0-4)
[2021-05-08 07:17] LABS: Erythrocyte Sedimentation Rate 131 mm/hr (0-30)
--- NOTE | 2021-05-08 07:53 | DIET.NUTRFU ---
Pt with PO intakes 50-75%, weight stable, BG moderate- avg. 120, diarrhea dt C.diff. Pt requests no water on her trays and states she does not drink water dt prednisone leaving bad taste in her mouth. Diet edu provided importance fluid and options for hydrating with taste changes, encouraged water intake. Diet edu provided for weight loss and DM, pt encouraged to f/u as OP.
--- NOTE | 2021-05-08 08:22 | HMH.ACPN2 ---
<Helena Moy - Last Filed: 05/08/21 08:22> Internal Medicine - PN: Subj *Date: 05/08/21 *Time: 08:22 Interval history: Patient states she is feeling better today. She slept well. She states she does have pain in her foot, but just had the dressing changed. Exam Vital signs and Labs for Last 24 Hours: Temp Pulse Resp BP Pulse Ox 98 F 68 18 124/70 94 L 05/08/21 04:00 05/08/21 04:00 05/08/21 04:00 05/08/21 04:00 05/08/21 04:00 Laboratory Results - last 24 hr 05/07/21 05:35: Hemoglobin A1c 6.8 H 05/07/21 08:12: POC Glucose 98 05/07/21 11:33: POC Glucose 111 H 05/07/21 14:18: POC Glucose 125 H 05/07/21 16:36: Vancomycin Trough 25.8 H 05/07/21 16:51: POC Glucose 144 H 05/07/21 21:07: Vancomycin Peak 23.5 05/07/21 21:54: POC Glucose 95 05/08/21 05:15: POC Glucose 105 05/08/21 05:46: WBC 12.7 H D, RBC 3.57 L, Hgb 11.0 L, Hct 35.0 L, MCV 97.9, MCH 30.9, MCHC 31.5 L, RDW 15.8, Plt Count 337, MPV 8.0, Neut % (Auto) 72.6, Lymph % (Auto) 14.6, [place] % (Auto) 5.9, Eos % (Auto) 5.9, Baso % (Auto) 1.0, Neut # (Auto) 9.2 H, Lymph # (Auto) 1.9, [place] # (Auto) 0.8, Eos # (Auto) 0.8 H, Baso # (Auto) 0.1, ESR 131 H 05/08/21 05:46: Sodium 137, Potassium 3.9, Chloride 101, Carbon Dioxide 28, Anion Gap 11.9, BUN 14, Creatinine 0.80, Estimated Creat Clear 68, Estimated GFR 74, Est GFR ( Amer) 90, Glucose 116 H, Calcium 8.3 L, Total Bilirubin 0.2, AST 28 D, ALT 23 D, Alkaline Phosphatase 72, C-Reactive Protein 46.6 H D, Total Protein 6.4, Albumin 3.1 L, Globulin 3.3 H, Albumin/Globulin Ratio 0.9 L I & O for Last 24 hours: Intake & Output 05/05/21 05/06/21 05/07/21 05/08/21 11:59 11:59 11:59 11:59 Intake Total 1500 / 1500 2672 / 2672 720 / 720 Output Total 0 / 0 0 / 0 Balance 1500 / 1500 2672 / 2672 720 / 720 Weight 354 lb 4 oz 354 lb 4 oz 354 lb Microbiology Reports for the Last 24 Hours: Microbiology 05/06/21 01:40 Blood Blood Culture - Preliminary NO GROWTH AFTER 48 HOURS 05/06/21 01:40 Blood Blood Culture - Preliminary NO GROWTH AFTER 48 HOURS 05/07/21 14:00 Foot,Left Gram Stain - Final - Constitutional no acute distress - *Routine Respiratory Exam Present: CTA bilaterally - *Routine Cardiovascular Exam Present: RRR - *Routine Abdominal Exam Present: soft, normoactive bowel sounds. Absent: tenderness - *Routine Extremities Exam Present: edema (Improving). Absent: cyanosis, clubbing - *Routine Skin Exam Present: warm. Absent: rash Comments: Left lower extremity with dressing in place, erythema is improving as is the edema - *Routine Neurological Exam Present: alert, oriented X3 Assessment and Plan (1) Lower extremity cellulitis Status: Acute Qualifiers: Laterality: left Qualified Code(s): L03.116 - Cellulitis of left lower limb Category: Medical Code(s): L03.119 - Cellulitis of unspecified part of limb (2) Chronic venous insufficiency Status: Acute Category: Medical Code(s): I87.2 - Venous insufficiency (chronic) (peripheral) (3) Diabetic foot ulcer Status: Acute Category: Medical Code(s): E11.621 - Type 2 diabetes mellitus with foot ulcer; L97.509 - Non-pressure chronic ulcer of other part of unspecified foot with unspecified severity (4) Morbid obesity Status: Acute Category: Medical Code(s): E66.01 - Morbid (severe) obesity due to excess calories (5) Type 2 diabetes mellitus Status: Acute Category: Medical Code(s): E11.9 - Type 2 diabetes mellitus without complications (6) Obstructive sleep apnea Status: Acute Category: Medical Code(s): G47.33 - Obstructive sleep apnea (adult) (pediatric) (7) Polymyalgia rheumatica Status: Acute Category: Medical Code(s): M35.3 - Polymyalgia rheumatica (8) Chronic steroid use Status: Acute Category: Medical (9) Dyslipidemia Status: Acute Category: Medical Code(s): E78.5 - Hyperlipidemia, unsp
--- NOTE | 2021-05-08 09:01 | HMH.ORTHPN ---
Subjective Date: 05/08/21 <Loan Briones - 05/08/21 09:16> Time: 07:30 <Loan Briones - 05/08/21 09:16> Principal diagnosis: Left Lower extremity cellulitis <Loan Briones - 05/08/21 09:16> Interval history: Patient doing very well this morning she is sitting up in bed and is waiting for breakfast tray. Patient is postop day 1 status post left foot fifth metatarsal percutaneous bone biopsy, left foot incision and drainage, left foot wound debridement, ulcer excision with delayed primary closure. Patient states still having some pain with the feet but she relays that most of the pain is probably from her neuropathy. The dressing was changed this morning site was cleaned with Betadine upon compression there was no drainage noted from the area still mildly tender but she states it is less than yesterday. The area was redressed with Betadine dressing, sterile 4 x 4, Kerlix and Nitish wrap. Discussed with the patient that she will be discharged with 2 weeks oral antibiotics and will need to follow-up 1 week postop in the office for a site check and possible some suture removal. Patient stated she is not from around here she is from out of town and she may not make that appointment but she will try to get into see Dr. Forman but either way she will allow us to make the appointment and she will just see him when the time comes if she is going to be able to make that follow-up. <Loan Briones - 05/08/21 09:16> PN: Obj Ex Vital signs: Temp Pulse Resp BP Pulse Ox 98 F 68 18 124/70 94 L 05/08/21 04:00 05/08/21 04:00 05/08/21 04:00 05/08/21 04:00 05/08/21 04:00 <Suzie Prather - 05/09/21 18:34> Temp Pulse Resp BP Pulse Ox 98 F 68 18 124/70 94 L 05/08/21 04:00 05/08/21 04:00 05/08/21 04:00 05/08/21 04:00 05/08/21 04:00 <Loan Briones - 05/08/21 09:16> - Constitutional no acute distress <Loan Briones - 05/08/21 09:22> - Routine HEENT Exam Head: Present: normocephalic <Loan Briones - 05/08/21 09:22> - Routine Neck Exam Present: trachea midline <Loan Briones - 05/08/21 09:22> - Routine Respiratory Exam Absent: respiratory distress <Loan Briones - 05/08/21 09:22> - Routine Cardiovascular Exam Present: RRR <Loan Briones - 05/08/21 09:22> - Detailed Lower Extremity Exam Leg image: 1 - Chronic cellulutlits to her mid thighs, and acute cellulitis to her Left lower leg and she states it was on the dorsal foot, but has today is much better. <Loan Briones - 05/08/21 09:22> Bottom foot image: 1 - S/P Day #1- Left foot 5th metatarsal percutaneous bone biospy, Left foot incision and drainage, Left foot wound debridement, ulcer excision with delayed primary closure. Sutures intact there is no drainage noted when the area was compressed patient states some tenderness but it is better than yesterday's pain. The area was cleaned with Betadine and redressed with Betadine gauze, dry sterile dressing, Nitish wrap. Discussed with patient daily dressing changes will be required after discharge. <Loan Briones - 05/08/21 09:22> - Routine Back/Spine/Pelvis Exam Back/Spine: Present: full ROM <Loan Briones - 05/08/21 09:22> - Routine Skin Exam Present: intact <Loan Briones 05/08/21 09:22> - Routine Neurological Exam Present: alert, oriented X3, vision grossly intact, hearing grossly intact, normal speech <Loan Briones - 05/08/21 09:22> - Routine Psychiatric Exam Present: normal affect, cooperative <Loan Briones - 05/08/21 09:22> Progress Note: A&P (1) Lower extremity cellulitis Status: Acute (2) Chronic venous insufficiency Status: Acute (3) Diabetic foot ulcer Status: Acute (4) Morbid obesity Status: Acute (5) Type 2 diabetes mellitus Status: Acute (6) Obstructi
--- NOTE | 2021-05-08 10:26 | PC.NURSE ---
pt will need a quad cane rather than a regular to assist with gait mobility.
--- NOTE | 2021-05-08 10:33 | SW/DCPLANNER ---
Addendum entered by Zayra Moreau 05/08/21 10:47: I spoke with Lilly at [facility] to confirm patient information has been received and quad cane will be covered under patients insurance. Patient stated that she prefer to drive to [facility] and pick it up once discharged. Patient will discharge today. Original Note: This patient has request a quad cane and is agreeable for patient information to be faxed to [facility]. I will follow up with Nika once patient information is reviewed. Patient will discharge home today and will follow up with [facility] at [facility] in [place].
--- NOTE | 2021-05-08 11:09 | HMH.PTEV ---
Physical Therapy Evaluation Rehab PT IP Evaluation Start: 05/07/21 14:24 Freq: ONCE Status: Active Protocol: Document 05/08/21 09:00 JUAN LUIS (Rec: 05/08/21 11:09 PHOWILMAR [id number]) Subjective/History History History 55 [address] [facility] with L foot wound, now S/P I&D. She reports she lives alone, 3 steps to enter the home and she uses a RW for ambulation at baseline. Subjective Subjective She c/o increased L foot pain this am. Pt was given a forefoot offloading shoe for heel WBing. Rehab PT IP Eval Objective Appearance Patient Behavior Appropriate Patient Orientation Person,Place,Time Difficulty following instructions none Speech Pattern Clear Ambulation Patient Able to Ambulate Yes Ambulation Observation IP General Gait Pattern Observation Antalgic Gait Ambulation Distance (feet) 5 Ambulation Assistive Device Rolling Walker Ambulation Ability Supervision/Stand by Balance Ability to Arise Able, uses arms to help Sitting Balance Steady, safe Standing Balance Steady, wide stance Dynamic Sitting Balance Ability Good Dynamic Standing Balance Ability Good Transfers Bed Transfer Ability Supervision/Stand by Chair Transfer Ability Supervision/Stand by Sit to Stand Bed Transfer Ability Supervision/Stand by Sit to Stand Chair Transfer Ability Supervision/Stand by Rehab PT IP prob,goals,plan Problems Date of Evaluation: 05/08/21 Discharge Plan PT Discharge Plan Pt is appropriate to return home once medically stable. She appears to be minimally compliant with medical advice at this time and is at risk for further injury or problems with her surgical site due to this medical non-compliance. G -code Required No Eval Complexity Eval Charge Codes 75811 - Moderate Complexity PHYSICIAN CERTIFICATION: I certify the specified therapy services for Mini Martínez are required, authorized, and reviewed every 30 days.
--- NOTE | 2021-05-10 10:48 | HMH.DCSUM ---
General - General Admission date:: 05/06/21 <Davy Forman - 07/07/21 13:32> 05/06/21 <Helena Moy - 05/10/21 10:55> Discharge date: 05/08/21 <Helena Moy - 05/10/21 10:55> HPI HPI: Mini is a 55-year-old white female with a history of insulin-dependent type 2 diabetes mellitus, hypothyroidism, dyslipidemia, morbid obesity, obstructive sleep apnea, temporal arteritis, polymyalgia rheumatica, and SHANKS. She has had multiple previous hospitalization for cellulitis and diabetic wounds of both lower extremities. Most of these admissions have been at [facility] in [facility]. Most recently she was hospitalized at [facility] for 5 days last week and was discharged home on 05/03/2021 with a prescription for clindamycin. She became concerned on 05/05/2021 when the redness in her left foot and leg seem to be getting worse and she had more pain in the wound on her left foot. She went back to the emergency room at [facility] and states she was briefly admitted to the floor but when the hospitalist made rounds, he immediately discharged her home with a diagnosis of dermatitis of her leg. She then came to our emergency room in the early childhood education coordinator hours this morning with ongoing concerns about the infection in her left foot. She was evaluated in the ER and has now been admitted with a diagnosis of cellulitis and started back on vancomycin which she states she was given last week during her [facility] admission. She has been following as an outpatient with [facility] wound care for chronic wounds on both posterior thighs. Treatment has been complicated by her diabetes, body habitus, noncompliance due to the fact she is unable to change her own dressings at home and does not qualify for home health because she works every day. <Helena Moy - 05/10/21 10:55> Hospital Course Hospital Course: The patient's foot x-ray showed soft tissue swelling but no acute osseous findings. She had an extremity arterial study showing elevated ABIs on both sides suggesting hardening of the vessels. She had an MRI of the foot showing no abscess or osteomyelitis. There was moderate subcutaneous edema consistent with cellulitis along with mild Achilles tendinopathy and mild plantar fasciitis. She was admitted and started on vancomycin for her cellulitis. A podiatry consult was ordered and she was seen by Dr. Prather. They planned for a left foot wound debridement along with incision and drainage with possible bone biopsy. She did have some diarrheal stools and her diarrhea panel came back positive for C. difficile. She was continued on IV vancomycin and started on p.o. metronidazole for C. difficile. She was taken to the OR on 05/07/2021 and had a left foot fifth metatarsal percutaneous bone biopsy, left foot incision and drainage, and left foot wound debridement with ulcer excision and delayed primary closure. She tolerated the procedure well. On 05/08/2021 she had finally been able to sleep but did complain of some pain in her foot. Blood cultures showed no growth and her wound culture showed no organisms. Bone culture is still pending. She was stable to be discharged home on Bactrim and will continue with wound care and follow-up with Dr. Prather. <Helena Moy - 05/10/21 10:55> Objective Vital signs: Temp Pulse Resp BP Pulse Ox 98 F 68 18 124/70 94 L 05/08/21 04:00 05/08/21 04:00 05/08/21 04:00 05/08/21 04:00 05/08/21 04:00 <Davy Forman - 07/07/21 13:32> Temp Pulse Resp BP Pulse Ox 98 F 68 18 124/70 94 L 05/08/21 04:00 05/08/21 04:00 05/08/21 04:00 05/08/21 04:00 05/08/21 04:00 <Helena Moy - 05/10/21 10:55> Narrative: - Constitutional no acute distress - *Routine Respiratory Exam Present: CTA bilaterally - *Routine Cardiovascular Exam Present: RRR - *Routine Abdominal Exam Present: soft, normoactive b
== END 2021-05-08 11:28 | disposition home or self-care (01) | DRG 623 ==
LOC: ER 02:03 → 2ND 05:07
PROVIDERS: Podiatrist; Admitting Provider Family Medicine; Emergency Provider Emergency Medicine; PCP Family Medicine; Visit Provider Family Medicine
PROC: 0JBR0ZZ Excision of Left Foot Subcutaneous Tissue and Fascia, Open Approach (ICD-10-PCS; principal; 2021-05-07 13:15)
DX: E11.628 Type 2 diabetes mellitus with other skin complications (principal); L03.116 Cellulitis of left lower limb; Z68.44 Body mass index [BMI] 60.0-69.9, adult; A04.72 Enterocolitis due to Clostridium difficile, not specified as recurrent; L02.416 Cutaneous abscess of left lower limb; E11.621 Type 2 diabetes mellitus with foot ulcer; I87.2 Venous insufficiency (chronic) (peripheral); E66.01 Morbid (severe) obesity due to excess calories; K75.81 Nonalcoholic steatohepatitis (NASH); Z20.822 Contact with and (suspected) exposure to COVID-19; Z91.19 Patient's noncompliance with other medical treatment and regimen; G47.33 Obstructive sleep apnea (adult) (pediatric); Z79.52 Long term (current) use of systemic steroids; E03.9 Hypothyroidism, unspecified; Z79.4 Long term (current) use of insulin; E78.5 Hyperlipidemia, unspecified; M35.3 Polymyalgia rheumatica
CPT/HCPCS: 11042; 11043; 28008; 20220; 36415; 73630; 73720; 80048; 80053; 80202; 82962; 83036; 83605; 84145; 85007; 85025; 85651; 86140; 87040; 87070; 87075; 87186; 87205; 87507; 88304; 93923; 96365; 96367; 96375; 97162; 99284; A9576; J2704; J3370; U0003

== ENCOUNTER → 2022-05-16 14:09 | Outpatient (CLI) | payer BC, SELFPAY ==
[2022-05-16 18:56] LABS: Basophils # 0.2 K/mm3 (0-0.2); Eosinophils # 0.3 K/mm3 (0.0-0.4); Eosinophils % 2.2 % (0.1-12.0); Hematocrit 41.8 % (37.0-47.0); Hemoglobin 13.5 g/dL (12.2-16.2); Lymphocytes % 13.6 % (10-50); Mean Corpuscular HGB Conc 32.4 g/dL (31.8-35.4); Mean Corpuscular Hemoglobin 30.2 pg (27.0-31.2); Mean Corpuscular Volume 93.2 fl (81-99); Monocytes # 0.7 K/mm3 (0.1-1.0); Monocytes % 4.9 % (1.7-9.3); Neutrophils # 11.2 K/mm3 (1.8-7.8); Neutrophils % 78.2 % (37.0-80.0); Platelet Count 475 K/mm3 (142-424); Red Blood Count 4.48 M/mm3 (4.20-5.40); Red Cell Distribution Width 15.8 % (11.5-17.5); White Blood Count 14.3 K/mm3 (4.8-10.8)
== END ==
PROVIDERS: PCP Family Medicine; Visit Provider Family Medicine
DX: Z20.822 Contact with and (suspected) exposure to COVID-19 (principal); R05.9 Cough, unspecified
CPT/HCPCS: 85025; C9803; U0003; U0005

== ENCOUNTER 2022-06-20 22:29 | Emergency (ER) | payer BC, SELFPAY ==
[2022-06-20 22:31] VITALS: BP 144/70; PULSE 97; RESP 18; TEMP 36.7; O2SAT 98; BMI 63.5
--- NOTE | 2022-06-20 22:52 | PC.NURSE ---
Contacted [facility] to obtain medical records for pt recent ER visit
--- NOTE | 2022-06-20 22:54 | CT_ITS ---
PROCEDURE INFORMATION: Exam: CT Abdomen And Pelvis With Contrast Exam date and time: 06/20/2022 11:28 PM Age: 56 years old Clinical indication: Abdominal pain; Other: Lower abdomen, gluteal area; Additional info: Concern for gluteal abscess TECHNIQUE: Imaging protocol: Computed tomography of the abdomen and pelvis with contrast. Radiation optimization: All CT scans at this facility use at least one of these dose optimization techniques: automated exposure control; mA and/or kV adjustment per patient size (includes targeted exams where dose is matched to clinical indication); or iterative reconstruction. Contrast material: ISOVUE; Contrast volume: 75 ml; Contrast route: IV; COMPARISON: US ARTERIAL LOWER EXT REST 05/07/2021 7:31 AM FINDINGS: Lungs: Small fatty Bochdalek's hernia in the posteromedial left basilar distribution with no evidence of associated bowel herniation or solid organ herniation. Heart: Heart size normal. Mediastinal space: The visualized distal esophagus is largely contracted without gross abnormality. Liver: Hepatomegaly measuring 21 cm craniocaudal. Moderate generalized fatty infiltration of the liver. Irregular liver contour, suspect changes of cirrhosis. No mass lesions. No intrahepatic biliary ductal dilatation. Gallbladder and bile ducts: Normal. No calcified stones. No ductal dilation. Pancreas: There is minor stranding adjacent to the pancreatic head along its posterior margin, possibly mild changes of pancreatitis, correlate with lipase. No fluid collections. No evidence of pancreatic necrosis or ductal dilatation. Spleen: Granulomatous calcifications in the spleen without acute splenic abnormality. Adrenal glands: Normal. No adrenal mass. Kidneys and ureters: No acute abnormalities. No hydronephrosis or hydroureter. No urinary tract stones are identified. Stomach and bowel: The stomach is largely contracted. Small bowel is nondilated. The midportion of the transverse colon herniates into the more superior anterior abdominal wall hernia without evidence of colonic obstruction or strangulation. Moderate colonic diverticulosis without changes of diverticulitis. Appendix: The appendix is not identified. No secondary signs of appendicitis. Intraperitoneal space: No free fluid or air. Vasculature: No acute process. No abdominal aortic aneurysm. Mild calcific atherosclerosis. Lymph nodes: Mildly enlarged bilateral inguinal, iliac, and lower periaortic nodes, nonspecific. Urinary bladder: The urinary bladder is largely contracted without gross abnormality. Reproductive: Unremarkable as visualized. Bones/joints: No acute osseous abnormalities. Moderate-severe disc degenerative changes L5-S1 and L3-L4. Soft tissues: Periumbilical anterior abdominal wall hernia containing herniated fat and portion of transverse colon. Infraumbilical anterior abdominal wall hernias are also present just to the right of midline, with partial herniation of a few small bowel segments but no evidence of bowel obstruction or strangulation. Subcutaneous soft tissue stranding with adjacent wall thickening in the lower anterior abdominal wall, greater on the left, cellulitis versus edema. Moderate soft tissue swelling in the bilateral medial thigh subcutaneous tissues with associated dermal thickening, cellulitis versus edema. No venous thrombosis is evident within the field of view. No abscess. IMPRESSION: 1. No abscess. 2. Subcutaneous soft tissue swelling/stranding and skin thickening in the medial upper thighs and to a lesser degree in the lower anterior abdominal wall, left greater than right, suggesting changes of cellulitis
--- NOTE | 2022-06-20 22:58 | HMH.EDGENADL ---
Discharge Plan Disposition Patient Disposition: Home, Self-Care Condition: Fair Prescriptions Prescriptions: New clindamycin HCl 300 mg capsule 300 mg PO BID 7 Days Qty: 14 0RF No Action prednisone 10 mg tablet 10 mg PO penicillin V potassium 500 mg tablet 500 mg PO BID metoprolol tartrate 25 mg tablet 12.5 mg PO BID Label Comments: TAKE 1/2 TABLET BY MOUTH TWICE DAILY spironolactone 50 mg tablet 50 mg PO DAILY Label Comments: TAKE 1 TABLET BY MOUTH DAILY ferrous sulfate [FeroSul] 325 mg (65 mg iron) tablet 325 mg PO DAILY Label Comments: TAKE 1 TABLET BY MOUTH DAILY torsemide 100 mg tablet 100 mg PO DAILY levothyroxine 300 mcg tablet 300 mcg PO DAILY albuterol sulfate 90 mcg/actuation HFA aerosol inhaler 1 puff inhalation QID Qty: 8.5 1RF hydrocodone-acetaminophen 1 TAB tablet 1 tab PO Q4-6H PRN (Reason: acute pain) omeprazole 40 MG capsule,delayed release(DR/EC) 40 mg PO DAILY metformin 1,000 MG tablet 1,000 mg PO BID Label Comments: TAKE 1 TABLET BY MOUTH TWICE DAILY oxybutynin chloride 5 MG tablet extended release 24hr 5 mg PO DAILY folic acid 1 MG tablet 1 mg PO DAILY insulin aspart U-100 100 UNIT/ML insulin pen 15 unit SQ TID rosuvastatin 5 MG tablet 5 mg PO DAILY insulin glargine 100 UNIT/ML insulin pen 50 units SQ BID Label Comments: ADMINISTER 50 UNITS UNDER THE SKIN TWICE DAILY methotrexate sodium 2.5 MG tablet 20 mg PO WEEKLY aspirin 81 MG tablet,delayed release (DR/EC) 81 mg PO DAILY potassium chloride 20 MEQ tablet extended release 20 meq PO DAILY latanoprost (PF) 7.5 ML drops 1 drp ophthalmic (eye) HS gabapentin 300 MG capsule 300 mg PO DIRECTED Label Comments: take 300mg by mouth every morning and 600mg by mouth each evening metronidazole 500 MG tablet 500 mg PO TID Qty: 30 0RF sulfamethoxazole-trimethoprim 1 EACH tablet 1 each PO BID Qty: 20 0RF Referrals Follow up/Referrals: Davy Forman MD [Primary Care Provider] - See instructions Clinical Impressions Clinical Impression: Cellulitis Instructions Patient Instructions: DI for Cellulitis -- Adult Discharge ED Provider: Irineo Peralta General Adult HPI General Chief complaint: PAIN Stated complaint: NA, SOA, RASH ON ARMS Time Seen by Provider: 10/21/22 22:30 History of Present Illness HPI narrative: Patient is a 56-year-old female with a past medical history of diabetes, hypothyroidism, morbid obesity, dyslipidemia, PMR, Karimi, heart failure who presents with multiple complaints. Patient states that she is having pain in almost every extremity. She also complains of abdominal pain. She says that she was recently in rehab and was treated for a cellulitis. She was taking doxycycline for this but stopped taking it. She says that she has been living in her car. She reports that she was just evaluated at [place] [facility] and was subsequently discharged. She denies any new shortness of breath. She locates pain in her foot but she says has been treated for osteomyelitis in the past. She locates her rash on her gluteal folds. Related Data Home Medications Medication Instructions Recorded Confirmed aspirin 81 mg tablet,delayed 81 mg PO DAILY heart 05/06/21 05/16/22 release folic acid 1 mg tablet 1 mg PO DAILY methotrexate rescue 05/06/21 05/16/22 gabapentin 300 mg capsule 300 mg PO DIRECTED Pain 05/06/21 05/16/22 hydrocodone 5 mg-acetaminophen 325 1 tab PO Q4-6H PRN acute pain 05/06/21 05/16/22 mg tablet insulin aspart U-100 100 unit/mL 15 unit SQ TID Diabetes 05/06/21 05/16/22 (3 mL) subcutaneous pen insulin glargine 100 unit/mL (3 50 units SQ BID diabtes 05/06/21 05/16/22 mL) subcutaneous pen latanoprost (PF) 0.005 % eye drops 1 drp ophthalmic (eye) HS BOTH EYES 05/06/21 05/16/22 metformin 1,000
[2022-06-20 23:00] VITALS: BMI 63.5
[2022-06-20 23:00] LABS: Appearance,Urine CLEAR (Clear); Bilirubin,Urine Negative (Negative); Blood, Urine Negative (Negative); Color,Urine YELLOW (Yellow); Glucose,Urine (UA) Negative (Negative); Ketones,Urine Negative (Negative); Leukocyte Esterase,Urine Negative (Negative); Microscopic, Urine URINE MICROSCOPIC (MICROSCOPIC); Nitrate,Urine Negative (Negative); PH,Urine 5.5 (5.0-8.5); Protein,Urine Negative (Negative); Specific Gravity, Urine >= 1.030 (1.005-1.030); Urobilinogen,Urine 0.2 EU/dl (0.2)
[2022-06-20 23:06] LABS: Basophils # 0.1 K/mm3 (0-0.2); Basophils % 0.5 % (0.1-2.0); Eosinophils # 0.3 K/mm3 (0.0-0.4); Eosinophils % 2.4 % (0.1-12.0); Hematocrit 37.1 % (37.0-47.0); Hemoglobin 11.9 g/dL (12.2-16.2); Lymphocytes # 0.8 K/mm3 (0.7-4.5); Lymphocytes % 7.5 % (10-50); Mean Corpuscular Hemoglobin 30.4 pg (27.0-31.2); Mean Corpuscular Volume 94.8 fl (81-99); Mean Platelet Volume 7.7 fl (7.4-10.4); Monocytes # 0.5 K/mm3 (0.1-1.0); Monocytes % 4.5 % (1.7-9.3); Neutrophils # 9.4 K/mm3 (1.8-7.8); Neutrophils % 85.1 % (37.0-80.0); Platelet Count 354 K/mm3 (142-424); Red Blood Count 3.92 M/mm3 (4.20-5.40); Red Cell Distribution Width 16.2 % (11.5-17.5)
[2022-06-20 23:08] LABS: MANUAL DIFFERENTIAL MANUAL DIFFERENTIAL (MANUAL DIFF)
[2022-06-20 23:12] LABS: Alanine Aminotransferase 91 U/L (12-78); Albumin Level 4.2 g/dl (3.5-5.0); Albumin/Globulin Ratio 1.3 (1.1-1.8); Alkaline Phosphatase 124 U/L (38-126); Anion Gap 21.6 mEq/L (5-15); Aspartate Amino Transferase 70 U/L (14-36); Bilirubin,Total 0.7 mg/dl (0.2-1.3); Blood Urea Nitrogen 31 mg/dl (7-17); Calcium 9.1 mg/dl (8.4-10.2); Carbon Dioxide 25 mmol/L (22.0-30.0); Chloride 96 mmol/L (98-107); Creatinine Clearance Estimated 60 mL/min (50-200); Estimated Glomerular Filt Rate 65 ml/min (>60); GFR (African American) 78 ML/MIN (>60); Globulin 3.2 g/dL (1.3-3.2); Glucose 267 mg/dl (74-100); Potassium 3.6 mmoL/L (3.5-5.1); Sodium 139 mmol/L (136-145); Total Protein,Serum 7.4 g/dl (6.3-8.2)
[2022-06-20 23:13] LABS: Bacteria,Urine Trace /lpf
[2022-06-20 23:17] LABS: C-Reactive Protein 20.9 mg/L (0-4)
[2022-06-20 23:22] LABS: Eosinophils % 1 % (0-3); Lymphocytes % 9 % (10-50); Monocytes % 1 % (2-9); Neutrophils % 85 % (42-76); Platelet Estimate Normal; RBC Morphology Normal; Rouleaux 1+; Total Cells Counted 100; Toxic Granulation 1+
--- NOTE | 2022-06-20 23:22 | PC.NURSE ---
Pt going to CT
[2022-06-20 23:31] LABS: Procalcitonin 0.087 ng/mL (0.0-2.0)
[2022-06-20 23:40] LABS: Erythrocyte Sedimentation Rate 81 mm/hr (0-30)
--- NOTE | 2022-06-20 23:53 | PC.NURSE ---
Pt returned from CT
[2022-06-21] VITALS: BP 126/62; PULSE 76; O2SAT 96
--- NOTE | 2022-06-21 00:28 | PC.NURSE ---
Rounded on pt at this time and updated on POC. Provided pt with ice. No other needs at this time
[2022-06-21 00:30] VITALS: BP 135/72; PULSE 85; O2SAT 96
[2022-06-21 01:00] VITALS: BP 125/75; PULSE 77; O2SAT 97
[2022-06-21 01:08] LABS: Lipase 126 U/L (23-300)
--- NOTE | 2022-06-21 01:17 | PC.NURSE ---
Pt asked for assistance in raising her bed rail
[2022-06-21 01:48] VITALS: BP 135/74; PULSE 82; RESP 18; TEMP 36.6; O2SAT 98
== END 2022-06-21 01:50 | disposition home or self-care (01) ==
PROVIDERS: Emergency Provider Student in an Organized Health Care Education/Training Program; PCP Family Medicine
DX: L03.90 Cellulitis, unspecified (principal); Z79.82 Long term (current) use of aspirin; Z79.899 Other long term (current) drug therapy; Z79.84 Long term (current) use of oral hypoglycemic drugs; Z79.4 Long term (current) use of insulin; Z88.1 Allergy status to other antibiotic agents; D72.829 Elevated white blood cell count, unspecified; R10.9 Unspecified abdominal pain; R06.02 Shortness of breath; E11.9 Type 2 diabetes mellitus without complications; E03.9 Hypothyroidism, unspecified; E66.9 Obesity, unspecified
CPT/HCPCS: 74177; 80053; 81001; 83690; 84145; 85007; 85025; 85651; 86140; 99284; Q9967

== ENCOUNTER → 2022-06-23 11:00 | Outpatient (CLI) | payer BC, SELFPAY ==
[2022-06-23 20:09] LABS: Thyroid Stimulating Hormone 0.12 uIU/mL (0.465-4.68)
== END ==
PROVIDERS: PCP Family Medicine; Visit Provider Family Medicine
DX: E03.9 Hypothyroidism, unspecified (principal)
CPT/HCPCS: 84443

== ENCOUNTER → 2022-10-31 23:47 | Outpatient (CLI) | payer BC, SELFPAY ==
[2022-10-31 18:47] LABS: Alanine Aminotransferase 35 U/L (12-78); Albumin/Globulin Ratio 1.4 (1.1-1.8); Alkaline Phosphatase 115 U/L (38-126); Anion Gap 12.5 mEq/L (5-15); Aspartate Amino Transferase 39 U/L (14-36); Bilirubin,Total 0.6 mg/dl (0.2-1.3); Blood Urea Nitrogen 22 mg/dl (7-17); Calcium 9.6 mg/dl (8.4-10.2); Carbon Dioxide 34 mmol/L (22.0-30.0); Chloride 94 mmol/L (98-107); Estimated Glomerular Filt Rate 57 ml/min (>60); GFR (African American) 69 ML/MIN (>60); Globulin 2.8 g/dL (1.3-3.2); Glucose 227 mg/dl (74-100); Potassium 4.5 mmoL/L (3.5-5.1); Sodium 136 mmol/L (136-145); Total Protein,Serum 6.8 g/dl (6.3-8.2)
[2022-10-31 19:17] LABS: Thyroid Stimulating Hormone 2.71 uIU/mL (0.465-4.68)
== END ==
PROVIDERS: PCP Family Medicine; Visit Provider Family Medicine
DX: E11.9 Type 2 diabetes mellitus without complications (principal); E03.9 Hypothyroidism, unspecified; Z79.4 Long term (current) use of insulin
CPT/HCPCS: 80053; 84443

== ENCOUNTER → 2022-11-19 23:00 | Outpatient (CLI) | payer BC, SELFPAY ==
[2022-11-19 18:51] LABS: Basophils # 0.1 K/mm3 (0-0.2); Basophils % 0.6 % (0.1-2.0); Eosinophils # 0.3 K/mm3 (0.0-0.4); Eosinophils % 1.7 % (0.1-12.0); Hematocrit 40.9 % (37.0-47.0); Hemoglobin 12.8 g/dL (12.2-16.2); Lymphocytes # 0.9 K/mm3 (0.7-4.5); Lymphocytes % 5.3 % (10-50); Mean Corpuscular HGB Conc 31.2 g/dL (31.8-35.4); Mean Corpuscular Hemoglobin 29.9 pg (27.0-31.2); Mean Corpuscular Volume 95.9 fl (81-99); Mean Platelet Volume 8.9 fl (7.4-10.4); Monocytes # 0.9 K/mm3 (0.1-1.0); Monocytes % 5.2 % (1.7-9.3); Neutrophils # 15.3 K/mm3 (1.8-7.8); Neutrophils % 87.2 % (37.0-80.0); Platelet Count 414 K/mm3 (142-424); Red Blood Count 4.26 M/mm3 (4.20-5.40); Red Cell Distribution Width 16.6 % (11.5-17.5); White Blood Count 17.5 K/mm3 (4.8-10.8)
[2022-11-19 20:05] LABS: MANUAL DIFFERENTIAL MANUAL DIFFERENTIAL (MANUAL DIFF)
[2022-11-19 21:28] LABS: Lymphocytes % 5 % (10-50); Monocytes % 1 % (2-9); Neutrophils % 94 % (42-76); Total Cells Counted 100
[2022-11-19 21:29] LABS: Platelet Estimate Normal; RBC Morphology Normal
== END ==
PROVIDERS: PCP Family Medicine; Visit Provider Family Medicine
DX: L03.90 Cellulitis, unspecified (principal)
CPT/HCPCS: 85007; 85025